=== PATIENT | male | born 1950 | race Caucasian/White ===

== ENCOUNTER 2018-08-19 16:44 | Emergency (ER) | payer MEDICARE ==
[2018-08-19] MEDS ORDERED: Tetan/Diph/Pertus SYR(Tdap)* 0.5 ML SYR(BOOSTRIX) use SYR IM ONE (18:54)
[2018-08-19] MEDS ORDERED: Lidocaine 1%* 5 ML VIAL INJ ONE (18:54)
--- NOTE | 2018-08-19 19:12 | UC ---
Laceration HPI - HPI Summary HPI Summary: 68 y/o male presents to the urgent care c/o cutting his left index finger w/ a pocket knife while trying to fix a hose around 1630pm today. Pt reports bleeding stopped w/ pressure. He can move finger w/o any difficulty and denies numbness or tingling sensation. Pt can recalled when was the last Tetanus vaccine. Pt denies numbness or tingling sensation over his left hand or finger, SOB, chest pain, abdominal pain, N/V/d. Pain is 2/10 at touch. - History Of Current Complaint Chief Complaint: UCLaceration Stated Complaint: FINGER LAC Time Seen by Provider: 08/19/18 18:53 Hx Obtained From: Patient Laceration Location: Finger - left index laceration w/ a pocket knife around 1430pm today Mechanism Of Injury: Sharp Trauma Onset/Duration: Lasting Hours - 3 hrs Severity: Mild Pain Intensity: 2 Pain Scale Used: 0-10 Numeric Aggravating Factors: Movement Related History: Dominant Hand Right - Allergies/Home Medications Allergies/Adverse Reactions: Allergies Allergy/AdvReac Type Severity Reaction Status Date / Time amoxicillin Allergy Intermediate Rash Verified 08/19/18 17:24 metronidazole [From Flagyl] Allergy Intermediate dizzy Verified 08/19/18 17:24 PMH/Surg Hx/FS Hx/Imm Hx Previously Healthy: Yes Other Endocrine History: osteoarthritis - Surgical History Surgical History: Yes Surgery Procedure, Year, and Place: TONSILLECTOMY- AGE 19. COLONOSCOPIES- WITH POLYPS REMOVED- WITH SEDATION-CMC X 3. WISDOM TEETH REMOVED A TEEN - Family History Known Family History: Positive: Hypertension - Social History Occupation: Retired Lives: With Family Alcohol Use: Daily Alcohol Amount: 1 BEER 3-4 TIMES PER WEEK Substance Use Type: None Smoking Status (MU): Never Smoked Tobacco Amount Used/How Often: OCCASIONAL CIGAR OR PIPE Have You Smoked in the Last Year: No When Did the Patient Quit Smoking/Using Tobacco: MANY MANY YEARS AGO - Immunization History Hx Tetanus, Diphtheria Vaccination: No - unsure of Lst Tetanus vaccine Review of Systems All Other Systems Reviewed And Are Negative: Yes Constitutional: Positive: Negative Skin: Positive: Other - laceration of the left index finger w/ a pocket knife Eyes: Positive: Negative ENT: Positive: Negative Respiratory: Positive: Negative Cardiovascular: Positive: Negative Gastrointestinal: Positive: Negative Genitourinary: Positive: Negative Motor: Positive: Negative Neurovascular: Positive: Negative Musculoskeletal: Positive: Other: - left index finger pain s/p laceration Neurological: Positive: Negative Psychological: Positive: Negative Is Patient Immunocompromised?: No Physical Exam - Summary Physical Exam Summary: Vital Signs Reviewed: Yes General: well developed, well nourished male sitting in the examining table w/o any apparent distress Eye Exam: Normal Eyes: Positive: Conjunctiva Clear - PERRLA, EOMI, fundi grossly normal ENT: Positive: Normal ENT inspection, Hearing grossly normal, Pharynx normal, TMs normal Neck: Positive: Supple, Nontender, No Lymphadenopathy Respiratory: Positive: Chest non-tender, Lungs clear, Normal breath sounds, No respiratory distress Cardiovascular: Positive: RRR, No Murmur, Pulses Normal, Brisk Capillary Refill Abdomen Description: Positive: Nontender, No Organomegaly, Soft. Negative: CVA Tenderness (R), CVA Tenderness (L) Bowel Sounds: Positive: Present Musculoskeletal: Positive: Strength Intact, ROM Intact, No Edema Neurological: Positive: Alert, Muscle Tone Normal Psychological Exam: Normal Skin: Positive:ventral side of the second phalanx w/ a linear superficial laceration about 1.5cm in size, bleeding, no foreign body observed. mild tenderness to palpation, FROM of Lf hand and left index finger, sensation intact, capillary refill brisk, and pulses WNL. Triage Information Reviewed: Yes Vital Signs: Initial Vital Signs Temp 98.4 F 08/19/18 17:19 Pulse 61 08/19/18 17:19 Resp 18 08/19/18 17:19 BP 123/84 08/19/18 17:19 Pulse Ox 99 08/19/18 17:19 Laceration Repair - Laceration Repair 1 Description: Linear Laceration Size After Repair: Length (cm) - 1.5cm Modified For Repair: No Anesthesia Used: 1.0% Lido - 2ml Cleansing Completed Via Routine Prep: Yes Irrigation With Pressure Irrigation Device: Yes Closure Material: Sutures - 5 Closure Method: Single Layer Suture Of: Skin, SQ Suture Type: Nylon - 5.0 Laceration Course/Dx - Course/Dx Course Of Treatment: 68 y/o male presents to the urgent care c/o cutting his left index finger w/ a pocket knife while trying to fix a hose around 1630pm today. Pt reports bleeding stopped w/ pressure. He can move finger w/o any difficulty and denies numbness or tingling sensation. Pt can recalled when was the last Tetanus vaccine. Pt denies numbness or tingling sensation over his left hand or finger, SOB, chest pain, abdominal pain, N/V/d. Pain is 2/10 at touch.Hx obtained. Pt w/ ventral side of the second phalanx w/ a linear superficial laceration about 1.5cm in size, bleeding, no foreign body observed. mild tenderness to palpation, FROM of Lf hand and left index finger on examination. LACERATION PROCEDURE NOTE: . Copious irrigation was done with saline by the nurse and the wound explored. There was no FB or deep structure injury noted. FROM of left hand. procedure was explained and consent obtained, Timeout performed. The wound was anesthetized with 4 mL of 1% lido with good anesthesia. Sterile drape and prep were don. There were 5 sutures with 5.0 nylon type of suture. The length of the wound after closure was 1.5cm. No debridement done. Pt tolerated the procedure well without adverse effects. Neurovascular intact and FROM. Tdap ordered and applied by nurse. Pt advised to f/u suture removal in 10-12 days and if any signs of infection develop to immediately return to the urgent care of PCP for further management and treatment. Pt understood and agreed and left the clinic ambulating A&Ox3. - Differential Dx - Laceration/Wound Differental Diagnoses: Abrasion, Dehiscence, Laceration, Puncture Wound, Tendon Laceration - Diagnosis Provider Diagnosis: Laceration of left index finger Discharge - Sign-Out/Discharge Documenting (check all that apply): Patient Departure - D/c home All imaging exams completed and their final reports reviewed: No Studies - Discharge Plan Condition: Good Disposition: HOME Patient Education Materials: Laceration (ED), Acute Wound Care (ED) Referrals: Sisi Alejandra MD [Primary Care Provider] - 1 Week Additional Instructions: 1-Please apply topical triple antibiotic over the wound BID x 7 days . Keep wound clean and dry 2- F/u suture removal in 10-12 days days w/ your PCP or here at the urgent care. 3-Take Tylenol PO q6-8hrs prn for pain or swelling. Avoid too much flexion of your finger to avoid swelling 4- If you develop fever or redness around your finger please return to the Urgent care. - Billing Disposition and Condition Condition: GOOD Disposition: Home
[2018-08-19 20:23] VITALS: BP 150/92
== END 2018-08-19 20:18 | disposition home or self-care (01) ==
LOC: UCEAST 16:44
DX: S61.211A Laceration without foreign body of left index finger without damage to nail, initial encounter (principal); M19.90 Unspecified osteoarthritis, unspecified site; Z88.1 Allergy status to other antibiotic agents; Z88.0 Allergy status to penicillin; W26.0XXA Contact with knife, initial encounter; Y93.89 Activity, other specified; Y92.9 Unspecified place or not applicable
CPT/HCPCS: 12001; 90715; 96372; 99211; G0463

== ENCOUNTER 2020-10-23 20:40 | Observation (INO) ==
[2020-10-23] MEDS ORDERED: NS 0.9% 1000 ml BAG 1,000 ML IV ONE (21:53)
[2020-10-23 22:25] LABS: ABS Basophils 0.1 10^3/ul (0-0.2); ABS Eosinophils 0.4 10^3/ul (0-0.6); ABS Lymphocytes 1.2 10^3/ul (1.0-4.8); ABS Monocytes 0.7 10^3/ul (0-0.8); ABS Neutrophils 3.5 10^3/ul (1.5-7.7); Eosinophil % 6.4 %; Hematocrit 45 % (42-52); Hemoglobin 15.2 g/dL (14.0-18.0); Lymphocyte % 21.1 %; Mean Corpuscular HGB Conc 34 g/dL (31-36); Mean Corpuscular Hemoglobin 32 pg (27-31); Mean Corpuscular Volume 95 fL (80-94); Mean Platelet Volume 8.3 fL (7.4-10.4); Platelet Count 219 10^3/uL (150-450); Red Blood Count 4.78 10^6 /uL (4.18-5.48); Red Cell Distribution Width 14 % (10-15); White Blood Count 5.9 10^3/uL (3.5-10.8)
[2020-10-23 22:35] LABS: ALT 17 U/L (7-52); AST 20 U/L (13-39); Albumin 4.2 g/dL (3.2-5.2); Albumin/Globulin Ratio 1.8 (1-3); Alkaline Phosphatase 51 U/L (34-104); Anion Gap 5 mmol/L (2-11); Blood Urea Nitrogen 19 mg/dL (6-24); CO2 Carbon Dioxide 29 mmol/L (22-32); Chloride 103 mmol/L (101-111); Cholesterol 188 mg/dL; EGFR African American 48.9 (>60); EGFR Non-African American 40.4 (>60); Globulin 2.4 g/dL (2-4); Glucose 107 mg/dL (70-100); HDL Cholesterol 55.6 mg/dL; LDL Cholesterol 110 mg/dL; Potassium 4.1 mmol/L (3.5-5.0); Sodium 137 mmol/L (135-145); Total Protein 6.6 g/dL (6.4-8.9); Triglycerides 112 mg/dL
[2020-10-23 22:37] LABS: Activated Partial Thrombo Time 31.2 seconds (26.0-38.0); INR 0.99 (0.82-1.09); Troponin I 0.01 ng/mL (<0.03)
[2020-10-23 22:48] LABS: Urine Appearance Clear; Urine Bilirubin Negative (Negative); Urine Blood Negative (Negative); Urine Color Colorless; Urine Glucose Negative (Negative); Urine Ketones Negative (Negative); Urine Nitrite Negative (Negative); Urine Protein Negative (Negative); Urine Specific Gravity 1.003 (1.002-1.030); Urine Urobilinogen Negative (Negative)
[2020-10-23 22:50] LABS: Alcohol, S < 10 mg/dL (<10)
[2020-10-23 23:18] LABS: Urine Benzodiazepine Screen None Detected (None Detect); Urine Cannabinoids Screen None Detected (None Detect); Urine Opiates Screen None Detected (None Detect)
[2020-10-24] MEDS ORDERED: Enoxaparin 40 MG/0.4 ML SYR SUBCUT SCH (03:00)
[2020-10-24 05:36] LABS: Calcium 8.7 mg/dL (8.6-10.3); EGFR African American 68.7 (>60); EGFR Non-African American 56.7 (>60); Potassium 3.9 mmol/L (3.5-5.0)
[2020-10-24 05:52] LABS: TSH Ultra Thyroid Stim Horm 1.77 mcIU/mL (0.34-5.60)
[2020-10-24] MEDS ORDERED: Multivitamins/Minerals TAB PO SCH (09:00)
[2020-10-24 17:37] VITALS: BP 135/80
== END 2020-10-24 17:30 | disposition home or self-care (01) ==
LOC: MEDTELE 20:40 → ED 20:40 → MEDTELE 10-24 04:13
PROVIDERS: ADMIT Internal Medicine; ATTEND Internal Medicine